=== PATIENT | female | born 1980 | race Caucasian/White ===

== ENCOUNTER → 2017-12-07 | Outpatient (CLI) | payer OTHER | LOC: RAD 09:57 | PROVIDERS: ATTEND Family Medicine | DX: I49.02 Ventricular flutter (principal) ==

== ENCOUNTER 2019-01-29 01:17 | Emergency (ER) | payer OTHER ==
[2019-01-29] MEDS ORDERED: KETOROLAC TROMETHAMINE INJ 30 MG/ML VIAL ONE (01:34)
[2019-01-29] MEDS ORDERED: LIDOCAINE 2% 5 ML VIAL ONE (01:35)
[2019-01-29] MEDS ORDERED: SODIUM CHLORIDE 0.9% 50ML 50 ML ONE (01:36)
[2019-01-29] MEDS ORDERED: LIDOCAINE 2% 100 MG/5 ML SYG IV ONE ×2 (01:36→01:39)
[2019-01-29] MEDS ORDERED: ONDANSETRON INJ 4 MG/2 ML VIAL IV ONE ×2 (01:38→02:48)
[2019-01-29] MEDS ORDERED: SODIUM CHLORIDE 0.9% (FLUSH) 10 ML SYG IV PRN (01:38)
[2019-01-29] MEDS ORDERED: KETOROLAC TROMETHAMINE INJ 30 MG/ML VIAL IV ONE (01:38)
[2019-01-29] MEDS ORDERED: SODIUM CHLORIDE 0.9% 1000ML 1,000 ML IVS PRN (01:38)
--- NOTE | 2019-01-29 02:28 | CT ---
CT ABDOMEN PELVIS WITHOUT IV CONTRAST Exam date: 01/29/2019 1:38 AM SHIFT LAB TECHNICIAN Comparison: None Indication: Right flank pain Technique: Multiple helical axial images were obtained through the abdomen and pelvis without intravenous contrast. Sagittal and coronal reformatted images are reviewed as well. All CT scans at this facility use dose modulation, iterative reconstruction, and/or weight-based dosing when appropriate to reduce radiation dose to as low as reasonably achievable. Findings: Lung bases: A small hiatal hernia is present. Liver: Homogenous attenuation is demonstrated. Gallbladder/biliary: Gallbladder appears unremarkable. No calcified gallstones. No evidence of biliary ductal dilatation. Pancreas: Unremarkable. Spleen: Unremarkable. Adrenals: Unremarkable. Kidneys and ureters: There is a 1 mm stone in the distal right ureter with mild right hydroureter and hydronephrosis and trace right perinephric and periureteral stranding. Bladder: Unremarkable. Pelvic organs: Unremarkable. Bowel: No evidence of bowel obstruction. No bowel wall thickening. Appendix appears unremarkable. Peritoneum: No free air. No significant free fluid. Lymph nodes: Unremarkable. Vasculature: Unremarkable. Soft tissues: Unremarkable. Bones: Unremarkable. Impression: Distal right ureter 1 mm stone with mild right hydronephrosis and hydroureter and trace right perinephric and periureteral inflammatory changes. Electronically signed by: Jacky Mills MD 01/29/2019 2:26 AM SHIFT LAB TECHNICIAN
--- NOTE | 2019-01-29 02:36 | ED.PDOC ---
History of Present Illness - General Chief Complaint: Problem Stated Complaint: Right flank pain Time Seen by Provider: 01/29/19 01:38 Source: patient, RN notes reviewed, Vital Signs reviewed, family - Exam Limitations: no limitations - History of Present Illness Initial Comments: patient is a 38-year-old white female who presents with acute onset of right flank pain just prior to arrival.pain is cramping in nature. It is constant. It is sharp and stabbing.. It is colicky in nature. Nothing makes it better or worse. Patient denies any headaches, chest pain, shortness of breath, dysuria, hematuria, patient complains of urinary frequency. Timing/Duration: just prior to arrival Quality: severe, aching, cramping, stabbing, waxing/waning Onset Location: right flank Radiation: RLQ Activites at Onset: none Prior abdominal problems: none Sexual intercourse history: less than 2 months ago, single partner Improving Factors: nothing Worsening Factors: nothing Associated Symptoms: abdominal pain, lower back pain, nausea/vomiting - nausea only, urinary frequency Allergies/Adverse Reactions: Allergies NO KNOWN ALLERGY Allergy (Verified 01/29/19 01:31) Home Medications: Ambulatory Orders Acetazolamide 01/29/19 Hydroxychloroquine Sulfate [Hydroxychloroquine Sulfat] 01/29/19 Ketorolac Tromethamine [Toradol Tabs] 10 mg PO Q6HR #12 tab 01/29/19 Potassium Chloride [K-Tab] 20 meq PO BID #6 tab 01/29/19 Triamterene & Hydrochlorothiaz [Triamterene/Hydrochloroth 37.5-25 mg] 1 tab PO 01/29/19 Review of Systems - Review of Systems Constitutional: States: no symptoms reported EENTM: States: no symptoms reported Respiratory: States: no symptoms reported Cardiology: States: no symptoms reported Gastrointestinal/Abdominal: States: nausea Genitourinary: States: see HPI, frequency Musculoskeletal: States: see HPI, back pain Skin: States: no symptoms reported Neurological: States: no symptoms reported Endocrine: States: no symptoms reported Hematologic/Lymphatic: States: no symptoms reported All other Systems: Reviewed and Negative Past Medical History (General) - Patient Medical History Hx Other PMH: Yes - intracranial hypertension - Vaccination History Hx Influenza Vaccination: Yes - Female History Patient : No - Triage Comment ED Triage Comment: Sudden onset of rt flank pain, no radiation Family Medical History - Family History Father Family History: Unknown Physical Exam - Physical Exam General Appearance: Agitated, Alert, Anxious, Obvious distress, Obese, Well Developed, Well Groomed, Well Hydrated, Well Nourished Eyes, Ears, Nose, Throat Exam: PERRL/EOMI, normal ENT inspection, pharynx normal Neck: non-tender, full range of motion, supple, normal inspection Cardiovascular/Respiratory: regular rate, rhythm, no M/R/G, normal peripheral pulses, no JVD, normal breath sounds, no respiratory distress Gastrointestinal/Abdominal: normal bowel sounds, no organomegaly, no pulsatile mass, other - right flank pain Back Exam: no vertebral tenderness, CVA tenderness (R) Extremity: normal range of motion, non-tender, normal inspection, no pedal edema Neurologic: behavioral science chair II-XII nml as tested, no motor/sensory deficits, alert, normal mood/affect, oriented x 3 Skin Exam: normal color, warm/dry Lymphatic: no adenopathy Progress - Progress Progress: differential diagnosis: Ureterolithiasis, back strain, pyelonephritis, bowel obstruction among others. 01/29/19 02:41 patient pain is markedly reduced in a limited with IV Toradol as well as IV preservative-free lidocaine. Distal 1 mm stone. Charts home with a prescription for Toradol. I discussed the plan of care with patient and her and they voice understanding and agreement with plan of care. Luis A Anne M.D. #[id number] - Results/Orders Results/Orders: 01/29/19 01:38 IV Care:Saline Lock per Protoc QSHIFT Sodium Chloride 0.9% (Flush) [Saline Flush Syringe] 10 ml IV PRN PRN Sodium Chloride 0.9% 1000ML [Ns 1000 ml] 1,000 ml IVS .QD Laboratory Results - last 24 hr 01/29/19 01/29/19 01/29/19 01:45 01:45 01:45 WBC 11.3 H RBC 5.00 Hgb 14.8 Hct 44.0 MCV 88.0 MCH 29.6 MCHC 33.7 RDW 12.8 Plt Count 399 MPV 8.1 Absolute Neuts (auto) 6.20 Absolute Lymphs (auto) 3.70 H Absolute Monos (auto) 1.00 H Absolute Eos (auto) 0.30 Absolute Basos (auto) 0.10 Neutrophils % 55.2 Lymphocytes % 33.0 Monocytes % 8.9 Eosinophils % 2.2 Basophils % 0.7 Sodium 142 Potassium 2.9 L Chloride 106 Carbon Dioxide 22 Anion Gap 16.9 BUN 23 H Creatinine 1.02 BUN/Creatinine Ratio 22.5 H Random Glucose 122 H Serum Osmolality 288.1 Calcium 9.5 Serum HCG, Qual Urine Color Yellow Urine Appearance Sl cloudy Urine pH 5.5 Ur Specific [place] >= 1.030 Urine Protein Negative Urine Glucose (UA) Negative Urine Ketones Negative Urine Blood Moderate H Urine Nitrite Negative Urine Bilirubin Negative Urine Urobilinogen 0.2 Ur Leukocyte Esterase Negative Urine RBC 20-30 H Urine WBC 0 Ur Epithelial Cells 3-5 Urine Bacteria Rare 01/29/19 01:45 WBC RBC Hgb Hct MCV MCH MCHC RDW Plt Count MPV Absolute Neuts (auto) Absolute Lymphs (auto) Absolute Monos (auto) Absolute Eos (auto) Absolute Basos (auto) Neutrophils % Lymphocytes % Monocytes % Eosinophils % Basophils % Sodium Potassium Chloride Carbon Dioxide Anion Gap BUN Creatinine BUN/Creatinine Ratio Random Glucose Serum Osmolality Calcium Serum HCG, Qual Negative Urine Color Urine Appearance Urine pH Ur Specific [place] Urine Protein Urine Glucose (UA) Urine Ketones Urine Blood Urine Nitrite Urine Bilirubin Urine Urobilinogen Ur Leukocyte Esterase Urine RBC Urine WBC Ur Epithelial Cells Urine Bacteria CT ABDOMEN PELVIS WITHOUT IV CONTRAST Exam date: 01/29/2019 1:38 AM NATURAL DEVELOPER Comparison: None Indication: Right flank pain Technique: Multiple helical axial images were obtained through the abdomen and pelvis without intravenous contrast. Sagittal and coronal reformatted images are reviewed as well. All CT scans at this facility use dose modulation, iterative reconstruction, and/or weight-based dosing when appropriate to reduce radiation dose to as low as reasonably achievable. Findings: Lung bases: A small hiatal hernia is present. Liver: Homogenous attenuation is demonstrated. Gallbladder/biliary: Gallbladder appears unremarkable. No calcified gallstones. No evidence of biliary ductal dilatation. Pancreas: Unremarkable. Spleen: Unremarkable. Adrenals: Unremarkable. Kidneys and ureters: There is a 1 mm stone in the distal right ureter with mild right hydroureter and hydronephrosis and trace right perinephric and periureteral stranding. Bladder: Unremarkable. Pelvic organs: Unremarkable. Bowel: No evidence of bowel obstruction. No bowel wall thickening. Appendix appears unremarkable. Peritoneum: No free air. No significant free fluid. Lymph nodes: Unremarkable. Vasculature: Unremarkable. Soft tissues: Unremarkable. Bones: Unremarkable. Impression: Distal right ureter 1 mm stone with mild right hydronephrosis and hydroureter and trace right perinephric and periureteral inflammatory changes. Electronically signed by: Jacky Mills MD 01/29/2019 2:26 AM NATURAL DEVELOPER Departure - Departure Clinical Impression: Ureterolithiasis, Renal colic on right side, Hypokalemia due to excessive renal loss of potassium Time of Disposition: 02:44 Disposition: Discharge to Home or Self Care Condition: Good Departure Forms: ED Discharge - Pt. Copy, Patient Portal Self Enrollment Instructions: DI for Kidney Stones, Hypokalemia (DC) Referrals: Anand Bravo MD [Primary Care Provider] - 1-5 Days Prescriptions: Ketorolac Tromethamine [Toradol Tabs] 10 mg PO Q6HR #12 tab Potassium Chloride [K-Tab] 20 meq PO BID #6 tab Home Medications: Ambulatory Orders Acetazolamide 01/29/19 Hydroxychloroquine Sulfate [Hydroxychloroquine Sulfat] 01/29/19 Ketorolac Tromethamine [Toradol Tabs] 10 mg PO Q6HR #12 tab 01/29/19 Potassium Chloride [K-Tab] 20 meq PO BID #6 tab 01/29/19 Triamterene & Hydrochlorothiaz [Triamterene/Hydrochloroth 37.5-25 mg] 1 tab PO 01/29/19
[2019-01-29] MEDS ORDERED: HYDROcodone 5MG/APAP 325MG 1 EA TAB PO ONE (02:48)
[2019-01-29 03:07] VITALS: BP 141/78; TEMP 98.2; O2SAT 99
== END 2019-01-29 03:06 | disposition home or self-care (01) ==
LOC: ER 01:17
DX: N13.2 Hydronephrosis with renal and ureteral calculous obstruction (principal); E87.6 Hypokalemia
CPT/HCPCS: 74176; 80048; 81001; 84703; 85025; A4216; J1885; J2405; J7030

== ENCOUNTER → 2020-01-23 | Outpatient (CLI) | payer BC, OTHER | LOC: GMAJ 12:46 | PROVIDERS: ATTEND Family Medicine | DX: M06.9 Rheumatoid arthritis, unspecified (principal); Z79.899 Other long term (current) drug therapy ==